=== PATIENT | male | born 1995 | race Caucasian/White ===

== ENCOUNTER 2017-06-18 14:59 | Emergency (ER) | payer OTHER ==
[~2017-06-18] VITALS: Ht 172.7 cm; Wt 58.2 kg
[2017-06-18 15:42] VITALS: BP 129/80
--- NOTE | 2017-06-18 16:41 | NUR ---
Patient ambulated to bed 03.
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
--- NOTE | 2017-06-18 17:03 | NUR ---
Dr. Combs evaluating patient at bedside.
--- NOTE | 2017-06-18 17:24 | NUR ---
abrasion cleaned with 10cc of normal saline; bactrim ointment applied to top of right hand; band aid applied
[2017-06-18 17:26] VITALS: BP 137/71
--- NOTE | 2017-06-18 17:26 | NUR ---
Patient discharged with v/s stable. Written and verbal after care instructions given and explained. Patient verbalized understanding. Ambulatory with steady gait. All questions addressed prior to discharge. Advised to follow up with PMD.
[2017-06-18] MEDS ORDERED: BACITRACIN OINT 500 UNITS/GM PKT TP ONE (17:28)
== END 2017-06-18 17:26 | disposition home or self-care (01) ==
LOC: MED 14:59
DX: S60.221A Contusion of right hand, initial encounter (principal); F41.9 Anxiety disorder, unspecified; W22.01XA Walked into wall, initial encounter; Y93.89 Activity, other specified; Y92.89 Other specified places as the place of occurrence of the external cause; Y99.8 Other external cause status
CPT/HCPCS: 73130; 99284

== ENCOUNTER 2019-10-07 10:09 | Emergency (ER) | payer SELFPAY ==
[~2019-10-07] VITALS: Ht 170.2 cm; Wt 61.2 kg
[2019-10-07 10:20] VITALS: BP 133/87
--- NOTE | 2019-10-07 10:24 | NUR ---
Patient ambulated to bed 3. RN evaluating patient at bedside.
[2019-10-07 10:29] VITALS: BP 129/85
--- NOTE | 2019-10-07 10:29 | NUR ---
PT C/O PRODUCTIVE COUGH W/ YELLOWISH PHLEGM, FEVER, RHINORRHEA, NASAL CONGESTION X 2 DAYS. SOME MILD CHEST PAIN WITH COUGH 11/21. +NAUSEA/VOMITING YESTERDAY BUT NOT AT THIS TIME. DENIES CHILLS. WHEEZINGS AUSCULTATED ON UPPER AND MIDDLE LOBES OF THE LUNGS BILATERALLY. VSS; PATIENT POSITIONED FOR COMFORT; HOB ELEVATED; BEDRAILS UP X1; BED DOWN. ER MD MADE AWARE OF PT STATUS.
== END 2019-10-07 13:09 | disposition home or self-care (01) ==
LOC: MED 10:09
DX: J06.9 Acute upper respiratory infection, unspecified (principal)
CPT/HCPCS: 99281

== ENCOUNTER 2021-06-18 13:33 | Emergency (ER) | payer SELFPAY ==
[~2021-06-18] VITALS: Ht 175.3 cm; Wt 63.5 kg
[2021-06-18 13:51] VITALS: BP 127/81
--- NOTE | 2021-06-18 13:55 | NUR ---
TENT 1
--- NOTE | 2021-06-18 14:00 | NUR ---
BIB SELF C/O COUGH,6/10 SORE THROAT, LUMP RIGHT NECK X 3 WEEKS. PMH: APPENDECTOMY
[2021-06-18] MEDS ORDERED: ACETAMINOPHEN 325 MG TAB PO ONE (14:50)
[2021-06-18] MEDS ORDERED: ACETAMINOPHEN EXTRA STRENGTH 500 MG TAB ONE (15:04)
[2021-06-18] MEDS: ACETAMINOPHEN EXTRA STRENGTH 500 MG TAB PO ONE (15:07)
[2021-06-18 15:46] VITALS: BP 122/77
== END 2021-06-18 15:47 | disposition home or self-care (01) ==
LOC: MED 13:33
DX: J02.9 Acute pharyngitis, unspecified (principal); R05.9 Cough, unspecified
CPT/HCPCS: 99282

== ENCOUNTER → 2022-09-12 04:32 | Emergency (ER) | payer SELFPAY ==
--- NOTE | 2022-09-12 04:32 | NUR ---
PATIENT LEFT WITHOUT BEING SEEN BY DR. WILLOUGHBY. NO FURTHER CARE PROVIDED FOR PATIENT.
--- NOTE | 2022-09-12 04:32 | NUR ---
PATIENT CALL TO TRIAGE, NO ANSWER. PER ADMITTING OFFICE, HE WILL GO HOME.
== END | disposition left against medical advice (07) ==
LOC: MED 04:32
DX: H92.02 Otalgia, left ear (principal); Z53.21 Procedure and treatment not carried out due to patient leaving prior to being seen by health care provider